=== PATIENT | male | born 1965 | race Caucasian/White ===

== ENCOUNTER → 2017-02-01 | Day surgery (SDC) | payer BC ==
[~2017-02-01] MED LIST: ASACOL HD800 MG PO; ESCITALOPRAM OX10 MG PO; FISH OIL300 MG PO; IMURAN50 MG PO; LEVOXYL175 MCG PO; LEXAPRO PO; MULTI VITAMIN1 EACH PO; ROWASA4 GM/60 ML PR
--- NOTE | ~2017-02-01 | OR ---
Unit #: [id number] #: [id number] Patient: LUCIE ROSADO [id number] [address] [address] [id number] O MR#: [id number] NAME: LUCIE ROSADO ROOM: Date of Procedure: 02/01/2017 Admission Date: 02/01/2017 Surgeon: John Arnett M.D. : 1965 Attending Physician: John Arnett M.D. Primary Care Physician: Jass Thakur M.D. OPERATIVE REPORT PREOPERATIVE DIAGNOSES The patient has presented with history of hematochezia off and on as well as history of rectal itching and discomfort. He has longstanding history of Crohn's colitis, but has not been on any regular medications. PROCEDURES PERFORMED 1. Colonoscopy and biopsies. 2. Colonoscopy and polypectomy. POSTOPERATIVE DIAGNOSES The patient had localized changes of erythema, erosions, and ulceration in the rectum as well as in the cecum. The intervening mucosa of ascending, transverse, and descending colon as well as the sigmoid colon was normal. The terminal ileum was also normal. These changes are suggestive of Crohn's colitis. In addition, the patient had single sessile polyp in the mid sigmoid colon. The latter was removed using snare cautery polypectomy. The polyp was about 8 mm in size. Biopsies obtained from the cecal area as well as from the rectal area, which was inflamed. These were sent for histology. RECOMMENDATIONS 1. The patient is advised to use mesalamine enemas at night at least for the next week to 10 days and thereafter on an as needed basis. 2. He will be followed up in the office in 3 months' time. 3. He needs a repeat colonoscopy in 3 years. SEDATION USED MAC. DESCRIPTION OF PROCEDURE Following detailed explanation of the potential risks and complications of a colonoscopy, namely perforation, bleeding, and complications related to sedation, the patient was brought to GI lab and laid in the left lateral decubitus position. A digital rectal examination was performed, which was normal. Lubricated tip of the Olympus video colonoscope was inserted through the anus and advanced under direct vision. The scope was advanced, past rectum into the sigmoid colon. The patient was noted to have changes of proctitis involving the rectal mucosa. However, this sigmoid mucosa was normal. A single sessile polyp was noted in the mid to proximal sigmoid. This was about 8 mm in size. No diverticula were noticed. The scope tip was then navigated all the way up to cecum with visualization of the ileocecal valve and the appendiceal orifice. The patient did have normal mucosa throughout except in the rectal mucosa, Unit #: [id number] #: [id number] Patient: LUCIE ROSADO which was abnormal and the cecal mucosa which was abnormal. In the cecum, multiple erosions and ulcers were noted indicating colitis. In view of changes primarily in the rectum and cecum, the most likely etiology of these changes is Crohn's colitis. Instantly, ileocecal valve and terminal ileum were normal. Preparation was good with good visualization and photodocumentation was obtained. Successive segments of the colonic mucosa were examined upon withdrawal and a biopsy was obtained from the cecal mucosa and from the rectal mucosa and sent for histology. The previously noted changes were again validated. The sessile polyp in the cecum was then removed using snare polypectomy. It was retrieved and sent for histology. The patient did have small internal hemorrhoids. The scope was then withdrawn. The patient returned to the recovery area. He tolerated the procedure without any postprocedure complications. Dictated by... Darrell Peterson/ciro TD: 02/01/2017 16:48 JOB #: [id number] OPERATIVE REPORT Page 1 of 1 X John Arnett MD X PROCEDURE OPERATIVE NOTE
== END | disposition home or self-care (01) ==
LOC: COPS 09:59
DX: K63.5 Polyp of colon (principal); K52.9 Noninfective gastroenteritis and colitis, unspecified; K62.89 Other specified diseases of anus and rectum; E11.9 Type 2 diabetes mellitus without complications; E03.9 Hypothyroidism, unspecified; Z88.0 Allergy status to penicillin; Z91.048 Other nonmedicinal substance allergy status; Z79.899 Other long term (current) drug therapy
CPT/HCPCS: 82947; 88305; J2250